=== PATIENT | female | born 1990 | race Caucasian/White ===

== ENCOUNTER 2019-04-08 20:11 | Inpatient (IN) | payer MEDICAID, OTHER ==
[~2019-04-08] VITALS: Ht 149.9 cm; Wt 100.0 kg
[~2019-04-08 20:11] MED LIST: ATEN-169 PO; CYCL-1 PO; FLO0.4C PO; HYDR-4383 PO; HYDR12.522 PO; IBUPROFEN PO; NAPR-1154 PO; ONDA4TAB6 PO; PHEN-786 PO
[2019-04-08] MEDS ORDERED: acetaminophen 325mg tablet PO ONE (20:25)
[2019-04-08 21:00] LABS: BASOPHILS % (AUTO) 0.2 % (0-1); EOSINOPHILS % (AUTO) 0 % (0-6); HEMATOCRIT 38.1 % (35.0-45.0); HEMOGLOBIN 12.5 g/dl (12.0-16.0); LYMPHOCYTES % (AUTO) 4.9 % (21-51); MEAN CORPUSCULAR HEMOGLOBIN 25.9 PG (27.0-31.0); MEAN CORPUSCULAR HGB CONC 32.9 g/dL (33.0-36.5); MEAN CORPUSCULAR VOLUME 78.7 FL (78-98); MEAN PLATELET VOLUME 8.9 FL (7.4-10.4); MONOCYTES # (AUTO) 1.7 X10'3 (0-0.9); MONOCYTES % (AUTO) 7.9 % (2-12); NEUTROPHILS # (AUTO) 18.7 X10'3 (1.8-7.7); PLATELET COUNT 240 X10'3 (140-440); RED BLOOD COUNT 4.85 X10'6 (4.20-5.60); RED CELL DISTRIBUTION WIDTH 15.2 % (11.5-14.5); WHITE BLOOD COUNT 21.4 X10'3 (4.5-11.0)
[2019-04-08] MEDS ORDERED: levoFLOXACIN-Levaquin 750MG/D5 150 ML IV STA (21:04)
[2019-04-08 21:05] LABS: CLARITY,URINE CLEAR (Clear); COLOR,URINE YELLOW (Yellow); GLUCOSE, URINE NEGATIVE (Neg); KETONES,URINE NEGATIVE (Neg); LEUKOCYTE ESTERASE ,URINE MODERATE (Neg); NITRITES, URINE NEGATIVE (Neg); OCCULT BLOOD,URINE SMALL (Neg); PROTEIN,URINE NEGATIVE (Neg); UROBILINOGEN,URINE 0.2 E.U/dL (0.2-1.0)
[2019-04-08] MEDS ORDERED: ketorolac trometh. 30mg/ml inj. IV ONE (21:05)
[2019-04-08] MEDS ORDERED: ondansetron/PF 4mg/2ml inj IV ONE (21:05)
[2019-04-08] MEDS ORDERED: normal saline 1000ML IV soln IVB ONE (21:05)
[2019-04-08 21:06] LABS: UA COLLECTION TYPE CLN CATCH MIDSTREAM; URINE HCG NEGATIVE (NEG)
[2019-04-08 21:11] LABS: ALANINE AMINOTRANSFERASE 18 U/L (12-78); ALBUMIN 3.1 G/DL (3.4-5.0); ALBUMIN/GLOBULIN RATIO 0.8 (1.1-1.5); ALKALINE PHOSPHATASE 86 IU/L (46-116); ANION GAP 8 (8-16); ASPARTATE AMINO TRANSFERASE 10 U/L (10-37); BILIRUBIN,TOTAL 0.5 MG/DL (0.1-1.0); BLOOD UREA NITROGEN 8 MG/DL (7-18); BUN/CREATININE RATIO 9.9 (6.6-38.0); CALCIUM 8.9 MG/DL (8.5-10.1); CHLORIDE 103 MMOL/L (99-107); CREATININE 0.81 MG/DL (0.40-0.90); GLUCOSE 139 MG/DL (70-104); POTASSIUM 3.4 MMOL/L (3.5-5.1); SODIUM 137 MMOL/L (135-145); TOTAL CARBON DIOXIDE 26.2 MMOL/L (24-32); TOTAL PROTEIN 7.1 G/DL (6.4-8.2); eGFR 85 ML/MIN
[2019-04-08 21:17] LABS: BACTERIA,URINE 1+ /HPF (Neg); RBC,URINE NONE SEEN /HPF (0-2)
[2019-04-08 21:18] LABS: SQUAMOUS EPITHELIAL CELL,UR FEW /LPF (FEW)
[2019-04-08 21:19] LABS: LIPASE 116 U/L (73-393)
[2019-04-08] MEDS ORDERED: magnesium 4gm in 100ml NS 100 ML IV PRN (23:55)
[2019-04-08] MEDS ORDERED: ondansetron/PF 4mg/2ml inj IV PRN (23:55)
[2019-04-08] MEDS ORDERED: diphenhydrAMINE 25mg capsule PO PRN (23:55)
[2019-04-08] MEDS ORDERED: potassium CL 10mEq/100ml bag 100 ML IV PRN ×2 (23:55)
[2019-04-08] MEDS ORDERED: magnesium Cl slow-release 64mg tablet PO PRN (23:55)
[2019-04-08] MEDS ORDERED: acetaminophen 325mg tablet PO PRN (23:55)
[2019-04-08] MEDS ORDERED: mag hydrox/Alum hydrox/simeth 30ml oral suspension PO PRN (23:55)
[2019-04-08] MEDS ORDERED: magnesium hydroxide 30ml (MOM) UD suspension PO PRN (23:55)
[2019-04-08] MEDS ORDERED: HYDROmorphone 1 mg/ml syringe IV PRN (23:55)
[2019-04-08] MEDS ORDERED: potassium Cl 20 mEq SR tablet PO PRN ×2 (23:55)
[2019-04-08] MEDS ORDERED: magnesium 2GM in 50ml NS 50 ML IV PRN (23:55)
[2019-04-09] VITALS (21 sets, daily range): BP systolic 115–170; BP diastolic 45–100
[2019-04-09] MEDS ORDERED: CITA10TA9 PO (00:02)
[2019-04-09] MEDS ORDERED: METO-384 PO (00:02)
[2019-04-09] MEDS: normal saline 1000ml 1,000 ML IV SCH ×5 (01:00→19:35)
[2019-04-09] MEDS: heparin, porcine 5000 units/ml vial SQ SCH ×3 (01:06→16:00)
[2019-04-09] MEDS: ketorolac trometh. 30mg/ml inj. IV SCH ×4 (01:07→19:35)
[2019-04-09] MEDS: HYDROmorphone inj. 0.5 MG/0.5 ML DISP.SYRIN IV PRN ×3 (05:13→17:15)
[2019-04-09 05:50] LABS: BASOPHILS % (AUTO) 0.2 % (0-1); EOSINOPHILS % (AUTO) 0.1 % (0-6); HEMATOCRIT 33.2 % (35.0-45.0); LYMPHOCYTES # (AUTO) 1.4 X10'3 (1.1-4.8); LYMPHOCYTES % (AUTO) 7.6 % (21-51); MEAN CORPUSCULAR HEMOGLOBIN 26.4 PG (27.0-31.0); MEAN CORPUSCULAR VOLUME 79.9 FL (78-98); MEAN PLATELET VOLUME 9.1 FL (7.4-10.4); MONOCYTES # (AUTO) 1.5 X10'3 (0-0.9); MONOCYTES % (AUTO) 8.6 % (2-12); NEUTROPHILS % (AUTO) 83.5 % (42-75); PLATELET COUNT 220 X10'3 (140-440); RED BLOOD COUNT 4.16 X10'6 (4.20-5.60); RED CELL DISTRIBUTION WIDTH 15.4 % (11.5-14.5)
[2019-04-09 05:54] LABS: ALANINE AMINOTRANSFERASE 15 U/L (12-78); ALBUMIN 2.4 G/DL (3.4-5.0); ALBUMIN/GLOBULIN RATIO 0.7 (1.1-1.5); ALKALINE PHOSPHATASE 68 IU/L (46-116); ANION GAP 7 (8-16); ASPARTATE AMINO TRANSFERASE 11 U/L (10-37); BILIRUBIN,TOTAL 0.5 MG/DL (0.1-1.0); BLOOD UREA NITROGEN 9 MG/DL (7-18); BUN/CREATININE RATIO 11.8 (6.6-38.0); CALCIUM 8.3 MG/DL (8.5-10.1); CHLORIDE 112 MMOL/L (99-107); CREATININE 0.76 MG/DL (0.40-0.90); GLUCOSE 82 MG/DL (70-104); MAGNESIUM 1.6 MG/DL (1.5-2.4); POTASSIUM 3.8 MMOL/L (3.5-5.1); SODIUM 144 MMOL/L (135-145); TOTAL CARBON DIOXIDE 24.8 MMOL/L (24-32); TOTAL PROTEIN 5.8 G/DL (6.4-8.2); eGFR > 90 ML/MIN
--- NOTE | 2019-04-09 06:31 | NUR ---
Problems reprioritized. Patient report given, questions answered & plan of care reviewed with Mary WAGNER.
--- NOTE | 2019-04-09 06:35 | NUR ---
Patient in room [facility]. I have received report from Ivone WAGNER and had the opportunity to ask questions and assume patient care.
[2019-04-09] MEDS: CITALOpram 10mg tablet PO SCH (07:40)
[2019-04-09] MEDS: K and/or MAG REPLACEMENT MC SCH (07:40)
--- NOTE | 2019-04-09 08:53 | NUR ---
Malnutrition consult: Patient's current wt is stable with documented weights from past visits. Unable to assess PO intake as pt is currently NPO and in surgery holding room. Pt with no documented edema or decrease in muscle strength. Pt currently does not meet criteria for malnutrition. Will continue to follow. Addendum: 04/09/19 at [address] Amended: Links added.
--- NOTE | 2019-04-09 12:53 | NUR ---
Report called to recovery room nurse Samina WAGNER.
--- NOTE | 2019-04-09 12:59 | NUR ---
Patient taken down to OR.
[2019-04-09] MEDS ORDERED: iohexol 300 MG/1 ML 50ml polymer ONE (13:04)
[2019-04-09] MEDS ORDERED: morphine 4 MG/ML inj SYRINge IV PRN ×2 (13:25)
[2019-04-09] MEDS ORDERED: ondansetron/PF 4mg/2ml inj IV PRN (13:25)
[2019-04-09] MEDS ORDERED: proCHLORperazine 10 MG/2 ml inj IV PRN (13:25)
[2019-04-09] MEDS ORDERED: ringers solution, lacted 1,000 ML IV SCH (13:25)
[2019-04-09] MEDS ORDERED: meperidine/PF 25mg/ml syringe IV PRN ×3 (13:25)
[2019-04-09] MEDS ORDERED: propofol inj 20 ML IV ONE (13:35)
[2019-04-09] MEDS ORDERED: midazolam 2 mg/2 ml injection ONE (13:35)
[2019-04-09] MEDS ORDERED: fentaNYL/PF 50MCG/1 ML 2ML syringe ONE (13:35)
[2019-04-09] MEDS ORDERED: sevoflurane 250ml liquid IH ONE (13:54)
--- NOTE | 2019-04-09 14:37 | NUR ---
Received from OR via BED, accompanied by Anesthesiologist DR EVANS and report given by Anesthesiologist. PT DROWSY, NO S/S OF DISTRESS/DISCOMFORT, VSS. Addendum: 04/09/19 at 1518 by Samina Jolly RN Amended: Links added.
--- NOTE | 2019-04-09 15:25 | NUR ---
Received patient report from recovery room nurse Samina WAGNER. Awaiting arrival back to room 360A.
--- NOTE | 2019-04-09 15:47 | NUR ---
Report called to receiving nurse. Transferred via BED, NO Belongings, RECEIVING RN AT BEDSIDE TO RECEIVE PT, BLL, CALL LIGHT GIVEN, SIDE RAILS UP X 2. Special Issues communicated to receiving nurse. YES. Addendum: 04/09/19 at 1551 by Samina Jolly RN Amended: Links added.
--- NOTE | 2019-04-09 18:28 | NUR ---
Problems reprioritized. Patient report given, questions answered & plan of care reviewed with Carmela WAGNER.
[2019-04-09] MEDS: lactobacillus rhamnosus 10,000 MMU CELLS/CAPSULE PO SCH (19:35)
[2019-04-09] MEDS ORDERED: levoFLOXACIN-Levaquin 750MG/D5 150 ML IV SCH (21:00)
[2019-04-10] VITALS: BP 121/74
[2019-04-10] MEDS: ketorolac trometh. 30mg/ml inj. IV SCH ×2 (01:43→08:38)
[2019-04-10] MEDS: heparin, porcine 5000 units/ml vial SQ SCH ×2 (01:44→08:37)
[2019-04-10] MEDS: normal saline 1000ml 1,000 ML IV SCH (04:09)
[2019-04-10 06:21] LABS: BASOPHILS % (AUTO) 0.2 % (0-1); EOSINOPHILS # (AUTO) 0.1 X10'3 (0-0.9); EOSINOPHILS % (AUTO) 0.8 % (0-6); HEMATOCRIT 30.5 % (35.0-45.0); HEMOGLOBIN 10.2 g/dl (12.0-16.0); LYMPHOCYTES # (AUTO) 2.2 X10'3 (1.1-4.8); LYMPHOCYTES % (AUTO) 18.8 % (21-51); MEAN CORPUSCULAR HEMOGLOBIN 26.5 PG (27.0-31.0); MEAN CORPUSCULAR HGB CONC 33.2 g/dL (33.0-36.5); MEAN CORPUSCULAR VOLUME 79.7 FL (78-98); MEAN PLATELET VOLUME 8.8 FL (7.4-10.4); MONOCYTES # (AUTO) 1.4 X10'3 (0-0.9); MONOCYTES % (AUTO) 12.5 % (2-12); NEUTROPHILS # (AUTO) 7.8 X10'3 (1.8-7.7); NEUTROPHILS % (AUTO) 67.7 % (42-75); PLATELET COUNT 194 X10'3 (140-440); RED BLOOD COUNT 3.83 X10'6 (4.20-5.60); RED CELL DISTRIBUTION WIDTH 15.5 % (11.5-14.5); WHITE BLOOD COUNT 11.5 X10'3 (4.5-11.0)
--- NOTE | 2019-04-10 06:32 | NUR ---
Problems reprioritized. Patient report given, questions answered & plan of care reviewed with Denise WAGNER. Addendum: 04/10/19 at 0632 by Carmela Venegas RN Amended: Links added.
[2019-04-10 06:35] LABS: ALANINE AMINOTRANSFERASE 12 U/L (12-78); ALBUMIN 2.1 G/DL (3.4-5.0); ALBUMIN/GLOBULIN RATIO 0.6 (1.1-1.5); ALKALINE PHOSPHATASE 67 IU/L (46-116); ANION GAP 7 (8-16); ASPARTATE AMINO TRANSFERASE 12 U/L (10-37); BILIRUBIN,TOTAL 0.2 MG/DL (0.1-1.0); BLOOD UREA NITROGEN 7 MG/DL (7-18); BUN/CREATININE RATIO 9.5 (6.6-38.0); CALCIUM 8.4 MG/DL (8.5-10.1); CHLORIDE 111 MMOL/L (99-107); CREATININE 0.74 MG/DL (0.40-0.90); GLUCOSE 74 MG/DL (70-104); MAGNESIUM 1.7 MG/DL (1.5-2.4); SODIUM 143 MMOL/L (135-145); TOTAL CARBON DIOXIDE 24.6 MMOL/L (24-32); TOTAL PROTEIN 5.6 G/DL (6.4-8.2); eGFR > 90 ML/MIN
--- NOTE | 2019-04-10 06:37 | NUR ---
Patient in room [facility]. I have received report from BERNARD Casey and had the opportunity to ask questions and assume patient care.
[2019-04-10 08:00] VITALS: BP_SYST 134; BP_SYST 148; BP_DIAS 56; BP_DIAS 80
[2019-04-10] MEDS: K and/or MAG REPLACEMENT MC SCH (08:00)
[2019-04-10] MEDS: lactobacillus rhamnosus 10,000 MMU CELLS/CAPSULE PO SCH (08:38)
[2019-04-10] MEDS: CITALOpram 10mg tablet PO SCH (08:38)
[2019-04-10] MEDS ORDERED: CIPR-230 PO (10:20)
[2019-04-10 11:00] VITALS: BP 150/74
--- NOTE | 2019-04-10 12:30 | NUR ---
PT DISCHARGED TO HOME WITH ALL BELONGINGS, IN PRIVATE VEHICLE, ACCOMPANIED BY FRIEND. DISCHARGE INSTRUCTIONS AND MEDICATIONS REVIEWED, NEW PRESCRIPTION DELIVERED BY [facility]. PT INSTRUCTED TO FOLLOW UP WITH PCP AND THAT DR SANTILLAN'S OFFICE WOULD CONTACT HER FOR ESWL. PT ALSO PROVIDED WITH DR SANTILLAN'S OFFICE NUMBER AND INSTRUCTED TO CONTACT THEM IF SHE DOES NOT HEAR FROM THEM. IV DC'D, CANNULA INTACT. PT ESCORTED TO FRONT LOBBY BY PCT.
== END 2019-04-10 12:30 | disposition home or self-care (01) | DRG 853 ==
LOC: ER 20:12 → SUR 3N 04-09 00:44 → CMPBEDREQ 04-09 01:37
PROVIDERS: ADMIT Family Medicine; ATTEND Internal Medicine
PROC: BT171ZZ Fluoroscopy of Left Ureter using Low Osmolar Contrast (ICD-10-PCS; 2019-04-09)
PROC: 0T778DZ Dilation of Left Ureter with Intraluminal Device, Via Natural or Artificial Opening Endoscopic (ICD-10-PCS; principal; 2019-04-09 13:54)
DX: A41.9 Sepsis, unspecified organism (principal); E43 Unspecified severe protein-calorie malnutrition; N13.6 Pyonephrosis; Z68.41 Body mass index [BMI] 40.0-44.9, adult; E03.9 Hypothyroidism, unspecified; E66.01 Morbid (severe) obesity due to excess calories; F32.9 Major depressive disorder, single episode, unspecified; I10 Essential (primary) hypertension; Z79.899 Other long term (current) drug therapy; Z83.3 Family history of diabetes mellitus; Z87.442 Personal history of urinary calculi; Z88.1 Allergy status to other antibiotic agents; Z71.3 Dietary counseling and surveillance
CPT/HCPCS: 96365; 96366; 96375; 99285; Z7506; 36415; 74176; 76000; 80053; 81001; 81025; 83605; 83690; 83735; 84145; 85025; 85610; 87040; 87077; 87081; 87088; 87186; 93005; A4402; A4618; C1769; C2617; G0378; J1170; J1644; J1885; J1956; J2250; J2405; J2704; J3010; J7030; J7120; Q9967

== ENCOUNTER 2022-08-09 16:17 | Emergency (ER) | payer MEDICAID ==
[~2022-08-09] VITALS: Ht 149.9 cm; Wt 130.0 kg
[~2022-08-09 16:17] MED LIST changes: -ATEN-169 PO; +CITA10TA93 PO; -CYCL-1 PO; -FLO0.4C PO; -HYDR-4383 PO; -HYDR12.522 PO; -IBUPROFEN PO; -NAPR-1154 PO; -ONDA4TAB6 PO; -PHEN-786 PO
[2022-08-09] MEDS ORDERED: ibuprofen tablet 400 MG TABLET PO ONE (17:00)
[2022-08-09] MEDS ORDERED: ondansetron 4mg rapidly disintigrating tab PO ONE (17:00)
[2022-08-09 17:18] VITALS: BP 217/100
[2022-08-09] MEDS ORDERED: ONDA4TAB12 PO ×2 (17:29→17:32)
== END 2022-08-09 17:42 | disposition home or self-care (01) ==
LOC: ER 16:18
DX: B34.9 Viral infection, unspecified (principal); Z20.822 Contact with and (suspected) exposure to COVID-19; R11.2 Nausea with vomiting, unspecified; R05.9 Cough, unspecified; R51.9 Headache, unspecified; R53.83 Other fatigue; I10 Essential (primary) hypertension; E03.9 Hypothyroidism, unspecified; Z87.442 Personal history of urinary calculi; Z87.440 Personal history of urinary (tract) infections; Z88.1 Allergy status to other antibiotic agents; Z79.899 Other long term (current) drug therapy
CPT/HCPCS: 87635; 99283; C9803

== ENCOUNTER 2025-06-24 12:27 | Outpatient (CLI) | payer MEDICAID ==
[~2025-06-24 12:27] MED LIST changes: +ONDA-243 PO
--- NOTE | 2025-06-24 13:28 | RADIOLOGY REPORT ---
EXAM: CT CT CHEST INDICATION: ABNORMAL FINDINGS ON DX IMAGING OF OTH BODY STRUCTURES TECHNIQUE: Noncontrast axial images of the chest have been obtained along with coronal and sagittal reformatted images. All CT scans at this facility use dose modulation, iterative reconstruction, and/or weight based dosing when appropriate to reduce radiation dose to as low as reasonably achievable. COMPARISON: None FINDINGS: LOWER NECK: Unremarkable LYMPH NODES/MEDIASTINUM: No abnormal lymph nodes by CT size criteria CARDIOVASCULAR: Normal cardiac size. No pericardial effusion. No aneurysmal dilatation of the great vessels. No significant coronary artery calcifications. UPPER ABDOMEN: Unremarkable. MUSCULOSKELETAL: No acute fracture or aggressive focal osseous lesion. CHEST WALL: Unremarkable. LUNG PARENCHYMA/PLEURAL SPACE: No pleural effusion or pneumothorax. No consolidation, suspicious focal airspace opacity, or suspicious nodules. IMPRESSION: 1. No CT evidence of an acute intrathoracic process.
== END 2025-06-24 23:59 | disposition home or self-care (01) ==
LOC: RAD 12:27
PROVIDERS: ATTEND Physician Assistant Medical
DX: R93.89 Abnormal findings on diagnostic imaging of other specified body structures (principal)
CPT/HCPCS: 71250